=== PATIENT | female | born 2000 | race Two or more races ===

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

== ENCOUNTER 2020-01-04 02:02 | Emergency (ER) | payer OTHER, SELFPAY ==
[~2020-01-04] VITALS: Ht 170.2 cm; Wt 61.8 kg
[~2020-01-04 02:02] MED LIST changes: +oral birth control
[2020-01-04] MEDS ORDERED: ONDANSETRON 4MG/2ML VIAL As Ordered ONE (02:12)
[2020-01-04] MEDS ORDERED: ONDANSETRON 4MG/2ML VIAL IV ONE (02:15)
[2020-01-04] MEDS ORDERED: NS 1,000 ML IV ONE ×2 (02:15→05:15)
[2020-01-04 02:36] LABS: HEMATOCRIT 35.2 % (36.0-47.0); HEMOGLOBIN 11.7 g/dl (12.0-15.5); MEAN CORPUSCULAR HEMOGLOBIN 30.1 pg (27.0-33.0); MEAN CORPUSCULAR HGB CONC 33.2 g/dl (32.0-36.5); MEAN CORPUSCULAR VOLUME 90.5 fl (80.0-96.0); PLATELET COUNT, AUTOMATED 290 10^3/uL (150-450); RED BLOOD COUNT 3.89 10^6/uL (4.00-5.40); WHITE BLOOD COUNT 5.8 10^3/uL (4.0-10.0)
[2020-01-04 03:00] LABS: BLOOD UREA NITROGEN 6 MG/DL (7-18); CALCIUM LEVEL 8.6 MG/DL (8.5-10.1); CARBON DIOXIDE LEVEL 23 MEQ/L (21-32); CHLORIDE LEVEL 114 MEQ/L (98-107); CREATININE FOR GFR 0.69 MG/DL (0.55-1.30); ETHYL ALCOHOL (ETHANOL) 0.216 % (0.000-0.010); GLUCOSE, FASTING 98 MG/DL (70-100); HCG, SERUM QUALITATIVE NEGATIVE (NEGATIVE); POTASSIUM SERUM 4.3 MEQ/L (3.5-5.1); SODIUM LEVEL 145 MEQ/L (136-145)
[2020-01-04 03:14] LABS: AMPHETAMINES LEVEL URINE NEGATIVE (NEGATIVE); BARBITURATES URINE NEGATIVE (NEGATIVE); BENZODIAZEPINES URINE NEGATIVE (NEGATIVE); CANNABINOIDS URINE POSITIVE (NEGATIVE); COCAINE METABOLITE URINE NEGATIVE (NEGATIVE); METHADONE URINE NEGATIVE (NEGATIVE); OPIATES URINE NEGATIVE (NEGATIVE); PHENCYCLIDINE URINE NEGATIVE (NEGATIVE)
[2020-01-04 07:54] VITALS: BP 109/86
== END 2020-01-04 08:00 | disposition home or self-care (01) ==
LOC: M ED 02:02
DX: F10.929 Alcohol use, unspecified with intoxication, unspecified (principal)
CPT/HCPCS: 80048; 80307; 84703; 85027; 96361; 96374; 99284; G0480; J2405

== ENCOUNTER 2020-07-08 12:17 | Emergency (ER) | payer OTHER, SELFPAY ==
[~2020-07-08] VITALS: Ht 170.2 cm; Wt 59.1 kg
[2020-07-08] MEDS ORDERED: METOCLOPRAMIDE INJ 10MG/2ML VIAL (J2765 PER 1) IV ONE (14:30)
[2020-07-08] MEDS ORDERED: NS 1,000 ML IV ONE (14:30)
[2020-07-08 14:58] LABS: BASO # 0.1 10^3/uL (0.0-0.2); BASO % 0.4 % (0.0-1.0); EOS % 0.1 % (0.0-3.0); HEMATOCRIT 42.9 % (36.0-47.0); HEMOGLOBIN 14.9 g/dl (12.0-15.5); LYMPH % 7.3 % (24.0-44.0); MEAN CORPUSCULAR HEMOGLOBIN 30.5 pg (27.0-33.0); MEAN CORPUSCULAR HGB CONC 34.7 g/dl (32.0-36.5); MEAN CORPUSCULAR VOLUME 87.9 fl (80.0-96.0); MONO % 7.5 % (2.0-8.0); NEUTROPHILS # 11.6 10^3/uL (1.5-8.5); NEUTROPHILS % 84.3 % (36.0-66.0); PLATELET COUNT, AUTOMATED 401 10^3/uL (150-450); RED BLOOD COUNT 4.88 10^6/uL (4.00-5.40); WHITE BLOOD COUNT 13.7 10^3/uL (4.0-10.0)
[2020-07-08 15:44] LABS: ALBUMIN 4.9 GM/DL (3.2-5.2); ALT/SGPT 30 U/L (12-78); BILIRUBIN,DIRECT 0.2 MG/DL (0.0-0.2); BILIRUBIN,TOTAL 0.9 MG/DL (0.2-1.0); BLOOD UREA NITROGEN 18 MG/DL (7-18); CALCIUM LEVEL 11.1 MG/DL (8.5-10.1); CARBON DIOXIDE LEVEL 24 MEQ/L (21-32); CHLORIDE LEVEL 106 MEQ/L (98-107); GLUCOSE, FASTING 98 MG/DL (70-100); HCG, SERUM QUANTITATIVE 54886 MIU/ML; LIPASE 95 U/L (73-393); POTASSIUM SERUM 3.9 MEQ/L (3.5-5.1); SODIUM LEVEL 140 MEQ/L (136-145); TOTAL PROTEIN 8.3 GM/DL (6.4-8.2)
--- NOTE | 2020-07-08 16:56 | REP ---
INDICATION: pelvic pain in , no bleeding. COMPARISON: None. TECHNIQUE: Real-time sonographic evaluation of pelvis performed. FINDINGS: There is a single living intrauterine gestation with an estimated gestational age of 6 weeks 4 days based on a crown-rump length of 7 mm, EDC 02/27/2021. heart rate is 124 beats per minute. There is a small subchorionic hemorrhage measuring 13 x 9 x 12 mm. The ovaries are unremarkable in appearance, with internal blood flow and no evidence of torsion. IMPRESSION: Single living intrauterine gestation, estimated gestational age 6 weeks 4 days, heart rate 124 beats per minute. Small subchorionic hemorrhage 13 x 9 x 12 mm. Normal ovaries with no torsion <Electronically signed by Preet Engel > 07/08/20 [id number]
[2020-07-08] MEDS ORDERED: REGL10TA6 PO (17:01)
[2020-07-08 17:07] VITALS: BP 108/63
== END 2020-07-08 17:17 | disposition home or self-care (01) ==
LOC: M ED 12:17
DX: O20.8 Other hemorrhage in early pregnancy (principal); O21.9 Vomiting of pregnancy, unspecified; Z3A.01 Less than 8 weeks gestation of pregnancy; R51.9 Headache, unspecified
CPT/HCPCS: 76801; 80048; 80076; 83690; 84702; 85025; 96361; 96374; 99284; J2765

== ENCOUNTER 2020-07-25 21:59 | Emergency (ER) | payer OTHER ==
[~2020-07-25] VITALS: Ht 170.2 cm; Wt 62.2 kg
[2020-07-25 21:59] VITALS: BP 122/83
[~2020-07-25 21:59] MED LIST changes: +REGL10TA6 PO
== END 2020-07-26 01:50 | disposition left against medical advice (07) ==
LOC: M ED 21:59
DX: Z53.21 Procedure and treatment not carried out due to patient leaving prior to being seen by health care provider (principal)

== ENCOUNTER → 2020-10-16 | Outpatient (CLI) | payer OTHER ==
[2020-10-16 13:41] LABS: HEMATOCRIT 32.9 % (36.0-47.0); MEAN CORPUSCULAR HEMOGLOBIN 30.7 pg (27.0-33.0); MEAN CORPUSCULAR HGB CONC 33.4 g/dl (32.0-36.5); MEAN CORPUSCULAR VOLUME 91.9 fl (80.0-96.0); PLATELET COUNT, AUTOMATED 323 10^3/uL (150-450); RED BLOOD COUNT 3.58 10^6/uL (4.00-5.40); WHITE BLOOD COUNT 9.5 10^3/uL (4.0-10.0)
[2020-10-16 15:16] LABS: GC DNA AMPLIFICATION NEGATIVE (NEGATIVE)
[2020-10-16 15:19] LABS: HEPATITIS C VIRUS ABY INDEX 0.1 INDEX (<0.8); HIV 1&2 SCREEN CENTAUR NEGATIVE (NEGATIVE)
== END ==
LOC: M PLALAB 11:22
PROVIDERS: ATTEND Advanced Practice Midwife
DX: Z34.01 Encounter for supervision of normal first pregnancy, first trimester (principal); Z3A.00 Weeks of gestation of pregnancy not specified
CPT/HCPCS: 36415; 85027; 86762; 86780; 86803; 86850; 86900; 86901; 87086; 87340; 87389; 87491; 87591; G0463

== ENCOUNTER → 2020-10-22 | Outpatient (CLI) | payer OTHER, SELFPAY ==
--- NOTE | 2020-10-22 08:25 | REP ---
INDICATION: ANATOMY COMPARISON: 07/08/2020 TECHNIQUE: Transabdominal obstetrical ultrasound with color Doppler evaluation. FINDINGS: Examination demonstrates a single live intrauterine in cephalic presentation. motion is identified by technologist. Placenta is noted anterior and grade 0 without evidence for placenta previa or abruption. Amniotic fluid volume is normal. Cervix measures 3.2 cm in length and appears closed.. Selected gestational age: 21 weeks 3 days with ALIX 03/01/2021. Gestational age by current measurements 22 weeks 2 days with ALIX 02/23/2021. FHR equals 146 beats per minute. BPD: 5.2 cm at 21 weeks 5 days HC: 19.1 cm at 21 weeks 3 days AC: 17.4 cm at 22 weeks 2 days FL: 4.0 cm at 22 weeks 6 days HL: 3.7 cm at 23 weeks 0 days HC/AC: 1.10 Estimated weight 500 grams (89thpercentile). Anatomical assessment is complete and normal. Visualized normal structures include cranium, cerebral ventricles, choroid plexus, posterior fossa/cerebellum, cisterna magna, facial features/facial profile, lungs, heart/ventricular outflow tracts, diaphragm, stomach, anterior abdominal wall, kidneys/bladder, spine, extremities. Three-vessel cord noted. IMPRESSION: Single live intrauterine in cephalic presentation demonstrating appropriate estimated weight and growth. Anatomical assessment is complete and normal. <Electronically signed by Sarath Mckeon > 10/22/20 [id number]
== END ==
LOC: M WHC 07:17
PROVIDERS: ATTEND Advanced Practice Midwife
DX: Z34.92 Encounter for supervision of normal pregnancy, unspecified, second trimester (principal); Z3A.23 23 weeks gestation of pregnancy

== ENCOUNTER → 2020-11-14 | Outpatient (REF) | payer OTHER, SELFPAY | LOC: M SFHCWAGY 12:52 | PROVIDERS: ATTEND Advanced Practice Midwife | DX: Z36.89 Encounter for other specified antenatal screening (principal); Z3A.00 Weeks of gestation of pregnancy not specified | CPT/HCPCS: 87086; G0463 ==

== ENCOUNTER → 2020-12-13 | Outpatient (CLI) | payer OTHER, SELFPAY ==
[2020-12-13 13:48] LABS: HEMOGLOBIN 10.8 g/dl (12.0-15.5); MEAN CORPUSCULAR HEMOGLOBIN 31.1 pg (27.0-33.0); MEAN CORPUSCULAR HGB CONC 33.8 g/dl (32.0-36.5); MEAN CORPUSCULAR VOLUME 92.2 fl (80.0-96.0); PLATELET COUNT, AUTOMATED 304 10^3/uL (150-450); RED BLOOD COUNT 3.47 10^6/uL (4.00-5.40); WHITE BLOOD COUNT 11.1 10^3/uL (4.0-10.0)
== END ==
LOC: M PLALAB 09:43
PROVIDERS: ATTEND Advanced Practice Midwife
DX: Z34.02 Encounter for supervision of normal first pregnancy, second trimester (principal); Z36.89 Encounter for other specified antenatal screening
CPT/HCPCS: 36415; 82950; 85027; 86850; 86900; 86901; 87086; G0463

== ENCOUNTER 2021-02-27 14:05 | Inpatient (IN) | payer OTHER, SELFPAY ==
[2021-02-27] VITALS (25 sets, daily range): BP systolic 107–154; BP diastolic 66–98
[~2021-02-27] VITALS: Ht 170.2 cm; Wt 85.0 kg
[2021-02-27] MEDS ORDERED: TUMS750C22 PO (14:32)
[2021-02-27] MEDS ORDERED: PRENTAB9 PO (14:32)
[2021-02-27] MEDS ORDERED: HOME MED LIST COMPLETE! XX SCH (14:35)
[2021-02-27] MEDS ORDERED: LACTATED RINGER'S 1000 ML IV STA (14:52)
[2021-02-27] MEDS ORDERED: PENICILLIN G POTASSIUM IV 5 MU in D5W MINI-BAG PLUS 100 ML IV STA (14:52)
[2021-02-27] MEDS ORDERED: OXYTOCIN DRIP 30 UNITS in IV 1 EA IV PRN ×4 (14:55)
--- NOTE | 2021-02-27 15:10 | HPEPDOC ---
Obstetrical History & Physical General Date of Admission Feb 27, 2021 at 14:50 History of Present Illness 20yo G1 at 39+5 presenting for labor check, denies vaginal bleeding, loss of flu id. Endorses positive movement. Denies headaches, vision changes, shortnessof breath, right upper quadrant pain. Chief Complaint: Contractions, term Age: 20 : 1 Term: 0 Pre-term: 0 Abortions: 0 Livin Care Care: Good Care Dating Final EDC: Mar 01, 2021 LMP: May 25, 2020 Antepartum Course Height (inches): 67 Pre- weight (lbs.): 170 Admission Weight (lbs.): 189 Change in Weight (lbs.): 19 Past Medical History Past Obstetrical History : Past Obstetrical History: Primgravida Past Medical History Medical History denies Surgical History: Denies/None Family History Significant Family History: No pertinent family hx Social History Marital Status: Family situation: Spouse/partner home Psychosocial History: No pertinent psych hx * Smoker: non-smoker Alcohol: Denies Drugs: denies Abuse Violence Screening Have you been hit/kicked/slapp: No Have you been sexually assault: No Imunizations Tdap status: current Influenza Status: current Allergies Coded Allergies: No Known Allergies (Unverified , 10/17/18) Medications Scheduled Calcium Carbonate (Tums) 300 Mg Tab.chew, 1 TAB PO BID No.137/Iron/Folic Acd ( Vitamin Tablet) 1 Each Tablet, 1 TAB PO DAILY Physical Examination Physical Examination GENERAL: Alert and oriented times three. BREAST: . ABDOMEN: Gravid and non-tender to touch. FETUS: Is vertex (VTX) by sterile vaginal examination (SVE), and ultrasound HEART RATE: Regular rate LUNGS: nonlabored breathing EXTREMITIES: No edema. Pertinent Laboratoy Data Blood Type: O+ RBC Antibody Screen: Negative HIV: Negative Hepatitis B: Negative Hepatitis C: Negative Rapid Plasma Reagin: Nonreactive Rubella: Immune Varicella: Immune Chlamydia/Gonorrhea: Negative Group B Streptococcus: Positive Cystic Fibrosis: Declined Anatomy Ultrasound Ultrasound Date: Oct 22, 2020 Placenta Location: Anterior Normal Anatomy: Yes Placenta Previa: No Steroid Therapy Steroid Therapy: No Vaginal Examination Dilation: 5 cm Effacement: 90% Station: -1 Cervical Consistency: Soft Cervical Position: Anterior Presentation: Cephalic presentation Assessment Heart Rate (FHR): 135 Variability: Moderate Accelerations: Positive Decelerations: None Tocometer Contractions: Yes Frequency: regular, every 2-5 min. Multi-drug resistant Organism: No history of MDRO Assessment/Plan Assessment 20yo G1 at 39+5 GBS positive, vertex, efw 3400g in active labor. Plan Admit and orient. Nurse Substance Abuse and consent. Diet: clear liquid Group B Streptococcus (GBS) [positive]. Labs and intravenous (IV) per unit protocol. Counseled on Pitocin and induction of labor (IOL). Lactated Ringers (LR): Bolus [500] mL, then at [125] mL/hr. Anticipate [normal spontaneous delivery ()]. C-S as appropriate. Labor and Delivery Counseling L&D consent We will deliver your baby through the vagina with possible assistance of forceps or vacuum device if needed for maternal or indications. Forceps and vacuum are devices that can assist with vaginal delivery when normal pushing efforts cannot achieve delivery on their own or when delivery is needed in an emergency for baby's well-being. Medications may be required to induce or augment (help) your labor in order to achieve a vaginal delivery. An episiotomy may be required to help your baby to delivery vaginally. You may also require repair of any lacerations or tears of your vagina or vulva that are caused by delivery. In some cases, emergencies can occur that require an emergency section delivery so quickly that there may not be enough time to stop and complete consent forms for section. Understand that if this occurs, your provi ders will discuss the need for a section with you before they proceed with surgery. section is the delivery of your baby through an incision in your abdomen. In some situations, section may be safer to mom and baby than continuing labor and is only performed when clinically indicated. Risks of vaginal delivery include but are not limited to: Bleeding, infection, injury to the vagina, pelvic structures, injury to baby, damage to the uterus, reactions to anesthesia, uterine rupture, risk of hysterectomy for life threatening bleeding, or . Medications used to induce or augment labor may increase your risk for infection, uterine tachysystole, uterine rupture, heart rate abnormalities, need for emergency delivery or possible hysterectomy, and hemorrhage. Additional risks for use of forceps and vacuum include: increased risk of perineal and vaginal lacerations, risk of urinary or bowel incontinence, increased risk of injury to baby with bruising, scratches, hematomas on the head, or intracranial bleeding. GERALDO SMITH. DO Feb 27, 2021 15:10
[2021-02-27 15:19] LABS: HEMATOCRIT 31.4 % (36.0-47.0); HEMOGLOBIN 10.8 g/dl (12.0-15.5); MEAN CORPUSCULAR HEMOGLOBIN 30.9 pg (27.0-33.0); MEAN CORPUSCULAR HGB CONC 34.4 g/dl (32.0-36.5); MEAN CORPUSCULAR VOLUME 89.7 fl (80.0-96.0); PLATELET COUNT, AUTOMATED 305 10^3/uL (150-450); WHITE BLOOD COUNT 16.3 10^3/uL (4.0-10.0)
[2021-02-27 15:48] LABS: ALT/SGPT 22 U/L (12-78); BILIRUBIN,TOTAL 0.4 MG/DL (0.2-1.0); CREATININE FOR GFR 0.64 MG/DL (0.55-1.30); LDH LACTATE DEHYDROGENASE 249 U/L (84-246); URIC ACID 6.2 MG/DL (2.6-6.0)
[2021-02-27] MEDS ORDERED: FENTANYL 2MCG/ML ROPIVACAINE 0.2% IN 0.9% NACL 100ML IVBAG As Ordered ONE (15:51)
[2021-02-27] MEDS ORDERED: EPIDURAL COMMENT XX SCH (17:00)
[2021-02-27] MEDS ORDERED: REFRIGERATOR IV KEYS XX PRN (17:00)
[2021-02-27] MEDS ORDERED: LACTATED RINGER'S 1000 ML IV PRN (17:00)
[2021-02-27] MEDS ORDERED: diphenhydrAMINE 50MG/ML VIAL (J1200) IV PRN (17:00)
[2021-02-27] MEDS ORDERED: FENTANYL/ROPIVACAINE/NACL BAG 100 ML EPIDURAL SCH (17:00)
[2021-02-27] MEDS ORDERED: NALOXONE INJ 0.4MG/1ML VIAL (J2310 PER 1MG) IV PRN (17:00)
[2021-02-27] MEDS ORDERED: EPIDURAL/PCA KEYS XX PRN (17:00)
[2021-02-27] MEDS ORDERED: ePHEDrine SULFATE 25 MG/5 ML(5MG/ML) SYRINGE IV PRN (17:00)
[2021-02-27] MEDS ORDERED: ONDANSETRON 4MG/2ML VIAL IV PRN ×2 (17:00→23:45)
[2021-02-27] MEDS: LR 1,000 ML IV SCH ×2 (18:32→18:37)
[2021-02-27] MEDS ORDERED: PENICILLIN G POTASSIUM IV 2.5 MU in IV 1 EA IV SCH (19:00)
[2021-02-27] MEDS ORDERED: ACETAMINOPHEN 325 MG TAB PO ONE (19:45)
[2021-02-27 23:31] LABS: CORD GAS ABE V -1.7; CORD GAS HCO3 V 22.2 MEQ/L; CORD GAS O2 SAT V 89.8 %; CORD GAS PCO2 V 35.8 mmHg; CORD GAS PH V 7.411 UNITS; CORD GAS PO2 V 44.2 mmHg; CORD GAS SBC V 22.9 MEQ/L; CORD GAS TCO2 V 23.3 MEQ/L
[2021-02-27 23:35] LABS: CORD GAS ABE A -6.1; CORD GAS HCO3 A 20.3 MEQ/L; CORD GAS O2 SAT A 55.8 %; CORD GAS PCO2 A 42.9 mmHg; CORD GAS PH A 7.292 UNITS; CORD GAS PO2 A 24.7 mmHg; CORD GAS SBC A 18.5 MEQ/L; CORD GAS TCO2 A 21.6 MEQ/L
[2021-02-27] MEDS ORDERED: RHOGAM 300 MCG (1500 IU) INJ (J2790) IM SCH (23:45)
[2021-02-27] MEDS ORDERED: METHYLERGONOVINE MALEATE 0.2 MG TAB PO PRN (23:45)
[2021-02-27] MEDS ORDERED: MEASLES,MUMPS,RUBELLA VACCINE INJ (MMR-II) (90707) SC SCH (23:45)
[2021-02-27] MEDS ORDERED: PROMETHAZINE 25 MG TAB PO PRN (23:45)
[2021-02-27] MEDS ORDERED: LR 1,000 ML IV SCH (23:45)
[2021-02-27] MEDS ORDERED: DIBUCAINE 1% OINTMENT 30GM TOP PRN (23:45)
[2021-02-27] MEDS: ACETAMINOPHEN 500 MG TAB PO SCH (23:45)
--- NOTE | 2021-02-27 23:57 | DNPDOC ---
[facility] Delivery Note Delivery Note DATE OF DELIVERY: [id number] PREDELIVERY DIAGNOSIS: 39+5 weeks' gestation and labor. POST DELIVERY DIAGNOSIS: Delivered. PROCEDURE: Spontaneous vaginal delivery MELTER OPERATOR: Tho Cedeño DO ANESTHESIA: epidural ESTIMATED BLOOD LOSS: 300 mL. FINDINGS: 7 pound 6 ounce 3340g male , Score 8/9 loose nuchal reduced manually. time of 2317 [id number]. DELIVERY SUMMARY: Entered room with cervix completely dilated and station at +1. We began pushing and over the next hour she progressed to c/c/+3. The head then delivered, restituted AL followed by the anterior shoulder and corpus without difficulty. The was placed on the maternal abdomen and dried/suctioned/stimulated. Good cry was noted. After one minute the cord was clamped then cut by the father of the baby. The placenta delivered spontaneously and intact. Cord blood and cord gases obtained. Uterine massage until firm lower uterine segment. Pitocin bolused. Inspection of the perineum revealed a small right labial tear that was hemostatic. All counts were correct. Mother, father and baby were bonding well and in good condition when I left the room. DO SARAH Sahni BRADLEY J. DO Feb 27, 2021 23:57
[2021-02-28] VITALS (10 sets, daily range): BP systolic 125–146; BP diastolic 73–96
[2021-02-28] MEDS ORDERED: OXYTOCIN 30 UNITS IN 0.9% NaCl 500ML IV BAG (J2590) As Ordered ONE (00:04)
[2021-02-28] MEDS: IBUPROFEN 800 MG TAB PO SCH ×3 (02:30→17:35)
[2021-02-28] MEDS: ACETAMINOPHEN 500 MG TAB PO SCH ×4 (05:55→23:36)
--- NOTE | 2021-02-28 06:25 | IPNPDOC ---
Progress Note Date of Service: Feb 28, 2021 Progress Note SUBJECT: Ирина Dent is a 20-year-old 1 now Para 1001 status post uncomplicated spontaneous vaginal delivery at 39+5 weeks' at approximately 2317 hours on [id number] of a male 7#6oz (3340 grams) , doing well day # 1. She has been ambulating, voiding spontaneously without issue and tolerating regular diet. Breast feeding without issue. Reports lochia is like a normal period. She meets criteria for gestational hypertension as she had mild range blood pressures throughout labor for more than 4 hours. Preeclampsia labs were all negative and she is asymptomatic. OBJECTIVE: VITAL SIGNS: Within normal limits, afebrile. Alert and oriented times three. Breath sounds clear to auscultation. Heart rate: Regular rate and rhythm, no murmurs, rubs or gallops. Abdomen: Fundus firm at U-2. Soft, NTTP. Negative calf tenderness bilaterally ASSESSMENT: as above doing well on day 1. Vitals within normal limits, afebrile, hemodynamically stable with no evidence of infection. PLAN: 1. Discharge to home likely tomorrow (48 hours) 2. Tylenol and Motrin for pain. 3. Encourage breast feeding and ambulation. 4. undecided for contraception 5. Blood pressure check in one week , then routine PP visit in 6 weeks in clinic. VS, I&O, 24H, Fishbone Vital Signs/I&O Vital Signs Date Time Temp Pulse Resp B/P (MAP) Pulse Ox O2 Delivery O2 Flow Rate FiO2 02/28/21 05:37 98.8 87 16 125/73 (90) 97 Room Air I&O- Last 24 Hours up to 6 AM 02/28/21 06:00 Intake Total 2375 ml Output Total 1675 ml Balance 700 ml Laboratory Data 24H LABS Laboratory Tests 2 02/27/21 15:08: Nucleated Red Blood Cells % (auto) 0.0, Uric Acid 6.2H, Total Bilirubin 0.4, Aspartate Amino Transf (AST/SGOT) 17, Alanine Aminotransferase (ALT/SGPT) 22, Lactate Dehydrogenase 249H, Syphilis Serology NONREACTIVE, Coronavirus (COVID- 19)(PCR) NEGATIVE 02/27/21 15:11: Serology Scanned Report Hepatitis B Testing 02/27/21 23:23: Cord Venous Blood pH 7.411, Cord Venous Blood PCO2 35.8, Cord Venous Blood PO2 44.2, Cord Venous Blood HCO3 22.2, Cord Venous Blood Total CO2 23.3, Cord Venous Base Excess (Actual) -1.7, Cord Venous Base Excess (Standard) 22.9, Cord Venous Blood Oxygen Saturation 89.8 02/27/21 23:27: Cord Arterial Blood pH 7.292, Cord Arterial Blood PCO2 42.9, Cord Arterial Blood PO2 24.7, Cord Arterial Blood HCO3 20.3, Cord Arterial Blood Total CO2 21.6, Cord Arterial Blood Base Excess -6.1, Cord Arterial Base Excess (Standard 18.5, Cord Arterial Bld Oxygen Saturation 55.8 CBC/BMP Laboratory Tests 02/27/21 15:08 GERALDO SMITH DO Feb 28, 2021 06:19
[2021-02-28 07:40] LABS: HEMATOCRIT 27.3 % (36.0-47.0); HEMOGLOBIN 9.1 g/dl (12.0-15.5); MEAN CORPUSCULAR HEMOGLOBIN 30.6 pg (27.0-33.0); MEAN CORPUSCULAR HGB CONC 33.3 g/dl (32.0-36.5); MEAN CORPUSCULAR VOLUME 91.9 fl (80.0-96.0); PLATELET COUNT, AUTOMATED 262 10^3/uL (150-450); RED BLOOD COUNT 2.97 10^6/uL (4.00-5.40); WHITE BLOOD COUNT 17.1 10^3/uL (4.0-10.0)
[2021-02-28] MEDS ORDERED: PRENATAL VITAMINS CHEWABLE TABLET PO SCH (09:00)
[2021-02-28] MEDS: PRENATAL VITAMINS CHEWABLE TABLET PO SCH (09:01)
--- NOTE | 2021-02-28 13:46 | IPN ---
PROGRESS NOTE DATE: 02/28/2021 SUBJECTIVE: This patient requested circumcision of her male . After discussing risks and benefits of circumcision, the medical and non-medical indication of the penile block and aftercare, expressed understanding of penile block, aftercare and bleeding, signed the consent form. All questions were answered, 20 minute discussion. We await clearance by the dish machine operator. Leesa Corley OB
[2021-03-01] MEDS: IBUPROFEN 800 MG TAB PO SCH ×2 (00:40→09:46)
[2021-03-01] MEDS: ACETAMINOPHEN 500 MG TAB PO SCH (05:45)
[2021-03-01 06:00] VITALS: BP 135/78
[2021-03-01] MEDS ORDERED: IBUP80TA PO (06:53)
[2021-03-01] MEDS: PRENATAL VITAMINS CHEWABLE TABLET PO SCH (09:46)
--- NOTE | 2021-03-01 11:44 | DSES ---
DISCHARGE SUMMARY DATE OF ADMISSION: 02/27/2021 DATE OF DISCHARGE: 03/01/2021 SUBJECTIVE: This patient is a 20-year-old 1, now para 1 admitted with contractions at 39 and 5 weeks of gestation, delivered a male infant, 7 pounds 6 ounces, 3340 grams, scores of 8 and 9 at one and five minutes respectively, arterial pH 7.29, base excess -6.1, venous pH 7.41, base excess -1.7. She was group B Streptococcus (GBS) positive, treated prophylactically. On her second day, we discussed phlebitis, cystitis, mastitis, endometritis, cellulitis, diet, exercise, pain management, perineal, breast care. PHYSICAL EXAMINATION: The rest of the examination is unremarkable. Normocephalic, atraumatic. Neck full range of motion. Pupils equal and reactive to light. Distal pulses are symmetric. No evidence of deep venous thrombosis (DVT), pulmonary embolism (PE) or superficial phlebitis. CHEST: Clear bilaterally to bases. No wheezes or rhonchi. No costovertebral angle (CVA) tenderness. ABDOMEN: Soft. Four quadrant bowel sounds are noted. Patient is not complaining of any chest pain, nausea, diarrhea, urgency or frequency. No shortness of breath. Plans are for pickup of medications at [place], a six week checkup at [facility]. Her admitting hemoglobin was 10.8, hematocrit 31.4 and platelets 305. Discharge hemoglobin 9.1, hematocrit 27.3 and platelets were 262. VITAL SIGNS ON DISCHARGE: Blood pressure 135/78, respirations 18, pulse 73, temperature 97.1. SUMMARY: We have a term gestation, delivered a live male . All questions were answered, 20 minute discussion. The patient was discharged to followup as mentioned, six week at [facility] and there is a booked appointment for the infant at [facility].
== END 2021-03-01 10:50 | disposition home or self-care (01) | DRG 807 ==
LOC: M LDO 14:05 → M LDI 14:50 → M OBS 02-28 01:49
PROVIDERS: ADMIT Obstetrics & Gynecology; ATTEND Obstetrics & Gynecology
PROC: 10E0XZZ Delivery of Products of Conception, External Approach (ICD-10-PCS; principal; 2021-02-27)
DX: O13.4 Gestational [pregnancy-induced] hypertension without significant proteinuria, complicating childbirth (principal); Z37.0 Single live birth; O99.824 Streptococcus B carrier state complicating childbirth; Z3A.39 39 weeks gestation of pregnancy; O69.81X0 Labor and delivery complicated by cord around neck, without compression, not applicable or unspecified

== ENCOUNTER → 2023-05-14 | Outpatient (CLI) | payer OTHER ==
[~2023-05-14] MED LIST changes: +IBUP80TA PO; +PRENTAB9 PO; +TUMS750C22 PO
== END ==
LOC: M WHC 14:22
PROVIDERS: ATTEND Advanced Practice Midwife
DX: Z34.92 Encounter for supervision of normal pregnancy, unspecified, second trimester (principal)

== ENCOUNTER → 2023-05-14 | Outpatient (CLI) | payer OTHER ==
[2023-05-14 17:49] LABS: HEMATOCRIT 35.2 % (36.0-47.0); HEMOGLOBIN 12.2 g/dl (12.0-15.5); MEAN CORPUSCULAR HEMOGLOBIN 30.3 pg (27.0-33.0); MEAN CORPUSCULAR HGB CONC 34.7 g/dl (32.0-36.5); MEAN CORPUSCULAR VOLUME 87.6 fl (80.0-96.0); PLATELET COUNT, AUTOMATED 361 10^3/uL (150-450); RED BLOOD COUNT 4.02 10^6/uL (4.00-5.40); WHITE BLOOD COUNT 11.2 10^3/uL (4.0-10.0)
[2023-05-14 18:38] LABS: HIV 1&2 SCREEN NEGATIVE (NEGATIVE)
[2023-05-14 18:47] LABS: HEPATITIS C VIRUS ABY INDEX 0.05 INDEX (<0.8)
[2023-05-14 19:24] LABS: GC DNA AMPLIFICATION NEGATIVE (NEGATIVE)
== END ==
LOC: M PLALAB 14:42
PROVIDERS: ATTEND Advanced Practice Midwife
DX: Z34.92 Encounter for supervision of normal pregnancy, unspecified, second trimester (principal)

== ENCOUNTER → 2023-06-21 | Outpatient (CLI) | payer OTHER | LOC: M WHC 06:43 | PROVIDERS: ATTEND Advanced Practice Midwife | DX: Z34.92 Encounter for supervision of normal pregnancy, unspecified, second trimester (principal) ==

== ENCOUNTER → 2023-08-16 | Outpatient (CLI) | payer OTHER ==
[2023-08-16 11:28] LABS: HEMATOCRIT 32.3 % (36.0-47.0); HEMOGLOBIN 11.2 g/dl (12.0-15.5); MEAN CORPUSCULAR HEMOGLOBIN 31.5 pg (27.0-33.0); MEAN CORPUSCULAR HGB CONC 34.7 g/dl (32.0-36.5); PLATELET COUNT, AUTOMATED 294 10^3/uL (150-450); RED BLOOD COUNT 3.55 10^6/uL (4.00-5.40); WHITE BLOOD COUNT 10.8 10^3/uL (4.0-10.0)
[2023-08-16 12:16] LABS: GC DNA AMPLIFICATION NEGATIVE (NEGATIVE)
== END ==
LOC: M PLALAB 08:11
PROVIDERS: ATTEND Obstetrics & Gynecology
DX: Z34.92 Encounter for supervision of normal pregnancy, unspecified, second trimester (principal)

== ENCOUNTER → 2023-08-19 | Outpatient (CLI) | payer OTHER | LOC: M WHC 14:31 | PROVIDERS: ATTEND Obstetrics & Gynecology | DX: O36.5990 Maternal care for other known or suspected poor fetal growth, unspecified trimester, not applicable or unspecified (principal) ==

== ENCOUNTER → 2023-09-22 | Outpatient (CLI) | payer OTHER | LOC: M RAD 16:08 | PROVIDERS: ATTEND Obstetrics & Gynecology | DX: Z34.93 Encounter for supervision of normal pregnancy, unspecified, third trimester (principal) ==

== ENCOUNTER → 2023-10-04 | Outpatient (REF) | payer OTHER | LOC: M SFHCWAGY 12:44 | PROVIDERS: ATTEND Advanced Practice Midwife | DX: Z34.83 Encounter for supervision of other normal pregnancy, third trimester (principal) ==